=== PATIENT | female | born 1980 | race Caucasian/White ===

== ENCOUNTER 2025-05-24 10:08 | Outpatient (CLI) | payer OTHER | END 2025-05-24 10:09 | disposition home or self-care (01) | LOC: CSHSLEEP 10:08 | PROVIDERS: ATTEND Nurse Practitioner Family | DX: G47.33 Obstructive sleep apnea (adult) (pediatric) (principal); G47.10 Hypersomnia, unspecified; R53.83 Other fatigue; R51.9 Headache, unspecified; F31.9 Bipolar disorder, unspecified; F41.9 Anxiety disorder, unspecified; E11.9 Type 2 diabetes mellitus without complications; K21.9 Gastro-esophageal reflux disease without esophagitis; E66.9 Obesity, unspecified; Z68.42 Body mass index [BMI] 45.0-49.9, adult; R06.83 Snoring; G47.00 Insomnia, unspecified; J44.9 Chronic obstructive pulmonary disease, unspecified; I10 Essential (primary) hypertension | CPT/HCPCS: 95800 ==